=== PATIENT | female | born 1975 | race Two or more races ===

== ENCOUNTER 2024-07-13 07:31 | Outpatient (CLI) | payer OTHER ==
[~2024-07-13 07:31] MED LIST: CATAFLAM50 MG PO; ENALAPRIL MALEA20 MG PO
== END 2024-07-14 09:17 | disposition home or self-care (01) ==
LOC: NUCLEAR 07:31
PROVIDERS: ATTEND Internal Medicine
DX: I20.9 Angina pectoris, unspecified (principal)